=== PATIENT | male | born 1985 ===

== ENCOUNTER 2021-11-12 16:05 | Observation (INO) ==
[2021-11-12] MEDS ORDERED: Iopamidol - 370 500 ML MLS IVP ONE (16:39)
[2021-11-12 16:54] LABS: Basophils # 0.1 K/mcL (0.0-0.2); Basophils % 0.9 %; Eosinophils # 0.1 K/mcL (0.0-0.6); Eosinophils % 1.4 %; Hematocrit 41.3 % (37.5-50.1); Hemoglobin 13.5 g/dL (12.9-16.9); Immature Granulocytes % 0.2 % (0-4); Lymphocytes # 1.4 K/mcL (0.6-4.6); Lymphocytes % 16.2 %; Mean Corpuscular HGB Conc 32.7 g/dL (31.6-35.5); Mean Corpuscular Hemoglobin 26.9 pg (28.0-33.3); Mean Corpuscular Volume 82.3 fL (83.0-100.0); Mean Platelet Volume 11.4 fL (9.4-12.4); Monocytes # 0.5 K/mcL (0.0-1.3); Monocytes % 5.4 %; Neutrophils # 6.4 K/mcL (1.6-8.9); Platelet Count 320 K/mcL (140-400); Red Blood Count 5.02 M/mcL (4.19-5.50); Red Cell Distribution Width 13.8 % (11.5-14.5); Segmented Neutrophils % 75.9 %; White Blood Count 8.5 K/mcL (4.3-11.1)
[2021-11-12 17:16] LABS: Albumin 4.4 g/dL (3.5-5.7); Albumin/Globulin Ratio 1.6 (1.1-2.2); Bilirubin,Total 1.2 mg/dL (0.3-1.0); Calcium 8.8 mg/dL (8.6-10.3); Globulin 2.8 g/dL (2.4-3.5); Potassium 3.9 mEq/L (3.5-5.1); Total Protein 7.2 g/dL (6.4-8.9); Troponin I 0.03 ng/mL (< 0.04)
[2021-11-12] MEDS ORDERED: *HR* Labetalol 20 MG/4 ML SYRINGE IVP ONE ×2 (18:36→19:52)
[2021-11-12] MEDS ORDERED: Melatonin 3 MG TABLET PO PRN (21:37)
[2021-11-12] MEDS ORDERED: Naloxone 0.4 MG/ML INJ IVP PRN (21:37)
[2021-11-12] MEDS ORDERED: Ondansetron ODT 4 MG TAB.RAPDIS SL PRN (21:37)
[2021-11-12 22:01] LABS: Bilirubin,Urine Negative (Negative); Blood,Urine Negative (Negative); Clarity,Urine Clear (Clear); Color,Urine Light-Yellow (Yellow); Glucose,Urine (UA) Normal (Normal); Ketones,Urine Negative (Negative); Leukocyte Esterase,Urine Negative (Negative); Mucus,Urine Few per lpf (None-Few); Nitrite,Urine Negative (Negative); PH,Urine 6.5 pH Units (5.0-8.0); Protein,Urine 50 mg/dL (Neg-Trace); RBC,Urine 0-3 per hpf (0-3); Specific Gravity,Urine > 1.030 (1.010-1.025); Urobilinogen,Urine Normal (Normal); WBC,Urine 0-3 per hpf (0-3)
[2021-11-12 22:14] LABS: Sodium, Urine 78.5 mEq/L
[2021-11-12 22:36] LABS: Influenza A PCR Negative (Negative); Influenza B PCR Negative (Negative); Resp. Syncytial Virus PCR Negative (Negative); SARS-CoV-2 by PCR (In House) Negative (Negative)
[2021-11-12 22:38] LABS: Amphetamine Screen,Urine Negative ng/mL (Cutoff=1000); Barbiturate Screen,Urine Negative ng/mL (Cutoff=200); Benzodiazepines Screen,Urine Negative ng/mL (Cutoff=200); Cannabinoid Screen,Urine Negative ng/mL (Cutoff = 50); Cocaine Screen,Urine Negative ng/mL (Cutoff= 300); Opiate Screen,Urine Negative ng/mL (Cutoff=300); Phencyclidine Screen,Urine Negative ng/mL (Cutoff=25)
[2021-11-12] MEDS: Furosemide 20 MG/2 ML VIAL IVP SCH (22:59)
[2021-11-13 01:45] LABS: Hematocrit 38.1 % (37.5-50.1); Hemoglobin 12.5 g/dL (12.9-16.9); Mean Corpuscular HGB Conc 32.8 g/dL (31.6-35.5); Mean Corpuscular Hemoglobin 26.6 pg (28.0-33.3); Mean Corpuscular Volume 81.1 fL (83.0-100.0); Mean Platelet Volume 11.3 fL (9.4-12.4); Platelet Count 300 K/mcL (140-400); Red Cell Distribution Width 13.7 % (11.5-14.5)
[2021-11-13 02:06] LABS: Albumin 4.2 g/dL (3.5-5.7); Albumin/Globulin Ratio 1.7 (1.1-2.2); Bilirubin,Total 1.3 mg/dL (0.3-1.0); Calcium 8.9 mg/dL (8.6-10.3); Globulin 2.5 g/dL (2.4-3.5); Phosphorous 3.8 mg/dL (2.7-4.5); Potassium 3.5 mEq/L (3.5-5.1); Total Protein 6.7 g/dL (6.4-8.9)
[2021-11-13] MEDS: *HR* Heparin 5,000 UNIT/ML VIAL SQ SCH ×2 (05:07→17:07)
[2021-11-13] MEDS: Furosemide 20 MG/2 ML VIAL IVP SCH (07:50)
[2021-11-13] MEDS ORDERED: carvediloL 6.25 MG TABLET PO SCH (08:00)
[2021-11-13] MEDS ORDERED: *HR* LORazepam 0.5 MG TABLET PO PRN (15:12)
[2021-11-13] MEDS ORDERED: *HR* LORazepam 0.5 MG TABLET PO ONE (15:14)
[2021-11-13] MEDS: amLODIPine 5 MG TABLET PO SCH (15:33)
[2021-11-13] MEDS: carvediloL 25 MG TABLET PO SCH (17:07)
[2021-11-14] MEDS: *HR* Heparin 5,000 UNIT/ML VIAL SQ SCH ×2 (05:03→17:01)
[2021-11-14 05:12] LABS: Calcium 8.4 mg/dL (8.6-10.3); Potassium 4.1 mEq/L (3.5-5.1)
[2021-11-14] MEDS: amLODIPine 5 MG TABLET PO SCH (09:15)
[2021-11-14] MEDS: carvediloL 25 MG TABLET PO SCH ×2 (09:15→17:01)
[2021-11-14] MEDS: Spironolactone 25 MG TABLET PO SCH (14:52)
[2021-11-15 03:18] LABS: Hematocrit 37.7 % (37.5-50.1); Hemoglobin 12.1 g/dL (12.9-16.9); Mean Corpuscular HGB Conc 32.1 g/dL (31.6-35.5); Mean Corpuscular Hemoglobin 26.9 pg (28.0-33.3); Mean Corpuscular Volume 83.8 fL (83.0-100.0); Mean Platelet Volume 11.7 fL (9.4-12.4); Platelet Count 260 K/mcL (140-400)
[2021-11-15 03:28] LABS: Calcium 8.3 mg/dL (8.6-10.3); Potassium 4.3 mEq/L (3.5-5.1)
[2021-11-15] MEDS: *HR* Heparin 5,000 UNIT/ML VIAL SQ SCH ×2 (05:41→17:10)
[2021-11-15] MEDS: carvediloL 25 MG TABLET PO SCH ×2 (07:50→17:10)
[2021-11-15] MEDS: Spironolactone 25 MG TABLET PO SCH (07:50)
[2021-11-15] MEDS ORDERED: 0.9 % Sodium Chloride 1,000 ML IVC SCH (08:00)
[2021-11-15] MEDS ORDERED: lisinopriL 10 MG TABLET PO SCH (09:00)
[2021-11-15] MEDS ORDERED: amLODIPine 5 MG TABLET PO SCH ×2 (09:00)
[2021-11-15 13:59] LABS: Calcium 8.6 mg/dL (8.6-10.3); Potassium 4.2 mEq/L (3.5-5.1)
[2021-11-16 02:45] LABS: Calcium 8.5 mg/dL (8.6-10.3); Magnesium 2.1 mg/dL (1.6-2.6); Potassium 4.6 mEq/L (3.5-5.1)
[2021-11-16] MEDS: *HR* Heparin 5,000 UNIT/ML VIAL SQ SCH ×2 (04:41→18:08)
[2021-11-16] MEDS: carvediloL 25 MG TABLET PO SCH ×2 (09:28→18:08)
[2021-11-16] MEDS: Spironolactone 25 MG TABLET PO SCH (09:28)
[2021-11-16 16:25] VITALS: BP 151/104; PULSE 80; TEMP 97.9; O2SAT 100
== END 2021-11-16 18:23 | disposition home or self-care (01) ==
LOC: EMEROOARM 16:05 → 2NENU 16:05 → SUATTDRO 21:31 → 2NENU 22:41
PROVIDERS: ADMIT Internal Medicine; ATTEND Student in an Organized Health Care Education/Training Program